=== PATIENT | female | born 1935 | race Caucasian/White ===

== ENCOUNTER 2019-01-10 17:41 | Inpatient (IN) | payer OTHER ==
[~2019-01-10] VITALS: Ht 167.6 cm; Wt 77.7 kg
[2019-01-10 17:44] VITALS: BP 172/82
[2019-01-10 18:17] LABS: HEMATOCRIT 44.4 % (37.0-47.0); HEMOGLOBIN 14.9 gm/dL (12.0-15.0); MCH 30.7 pg (26.0-34.0); MCHC 33.5 g/dL (28.0-37.0); MCV 91.6 fL (80.0-100.0); RBC 4.85 mil/uL (4.20-5.00); RDW 15.1 % (10.5-14.5); WBC 12.4 thou/uL (4.0-11.0)
[2019-01-10 18:19] LABS: URINE BILIRUBIN NEGATIVE (Negative); URINE BLOOD NEGATIVE (Negative); URINE CLARITY CLEAR; URINE COLOR YELLOW; URINE GLUCOSE-RANDOM* NEGATIVE (Negative); URINE KETONES NEGATIVE (Negative); URINE NITRITE-REFLEX NEGATIVE (Negative); URINE PROTEIN (DIPSTICK) NEGATIVE (Negative); URINE SPECIFIC GRAVITY <= 1.005 (1.005-1.035); URINE UROBILINOGEN 0.2 E.U./dl (0.2-1.0)
[2019-01-10 18:23] LABS: CALCIUM 9.9 mg/dL (8.5-10.1); POTASSIUM 3.7 mmol/L (3.5-5.1)
[2019-01-10 18:24] LABS: URINE LEUKOCYTES-REFLEX 1+ (Negative)
[2019-01-10 18:28] LABS: ALBUMIN 4.2 g/dL (3.4-5.0); DIRECT BILIRUBIN 0.2 mg/dL (<0.1-0.3); TOTAL BILIRUBIN 1.1 mg/dL (<0.1-1.0); TOTAL PROTEIN 7.8 g/dL (6.4-8.2)
[2019-01-10 18:28] LABS: AMP/METHAMP Negative (Negative); BARBITURATES Negative (Negative); BENZODIAZEPINES Negative (Negative); COCAINE Negative (Negative); METHADONE Negative (Negative); OPIATES Negative (Negative); PCP Negative (Negative)
[2019-01-10] MEDS ORDERED: CALCIUM + D SO1 EACH PO (18:28)
[2019-01-10] MEDS ORDERED: CELEXA10 MG PO (18:28)
[2019-01-10] MEDS ORDERED: ASPIR 8181 MG PO (18:28)
[2019-01-10] MEDS ORDERED: CRESTOR5 MG PO (18:29)
[2019-01-10] MEDS ORDERED: SYNTHROID125 MC1 PO (18:29)
[2019-01-10] MEDS ORDERED: VENTOLIN HFA 1818 GM INH (18:29)
[2019-01-10] MEDS ORDERED: TURMERIC500 M2 PO (18:29)
[2019-01-10] MEDS ORDERED: FAMOTIDINE 20 M20 MG PO (18:29)
[2019-01-10] MEDS ORDERED: ANTIVERT25 MG PO (18:29)
[2019-01-10] MEDS ORDERED: TOPAMAX 25 MG T25 M1 PO (18:29)
[2019-01-10 18:32] LABS: BACTERIA-REFLEX None Seen /HPF (None Seen); CASTS None Seen /LPF (None Seen); CRYSTALS None Seen /LPF (None Seen); SQUAMOUS 0-3 Few /LPF (0-3); URINE RBC 3-10 Few /HPF (0-2); WBC CLUMPS Few (None Seen)
[2019-01-10 19:41] VITALS: BP 152/78
[2019-01-10 21:00] VITALS: BP 158/75
[2019-01-11 12:19] LABS: FOLIC ACID 14.9 ng/mL (8.6-58.9); TSH 0.492 uIU/mL (0.358-3.740)
[2019-01-11 18:24] VITALS: BP 151/71
[2019-01-11 19:50] VITALS: BP 139/76
[2019-01-12 06:49] LABS: URINE BILIRUBIN NEGATIVE (Negative); URINE BLOOD NEGATIVE (Negative); URINE CLARITY CLEAR; URINE COLOR YELLOW; URINE GLUCOSE-RANDOM* NEGATIVE (Negative); URINE KETONES NEGATIVE (Negative); URINE LEUKOCYTES-REFLEX NEGATIVE (Negative); URINE NITRITE-REFLEX NEGATIVE (Negative); URINE PROTEIN (DIPSTICK) NEGATIVE (Negative); URINE UROBILINOGEN 0.2 E.U./dl (0.2-1.0)
[2019-01-12 13:07] LABS: GLYCOHEMOGLOBIN (HGB A1C) 6.3 % (4.8-5.6)
[2019-01-12 20:30] VITALS: BP 155/84
[2019-01-12 22:10] VITALS: BP 155/84
[2019-01-13 08:00] VITALS: BP 150/79
--- NOTE | 2019-01-13 15:56 | EKG ---
[address] [address] ELECTROCARDIOGRAM REPORT Name: PHILIP WOODARD Room #: 526A-A ADM IN M.R.#: [id number] ������������������ Admission: 01/10/19 ������������������ Attend Phys: Pipo Hutchins DO Discharge: ������������������ Date of : 39 Report #: [id number] ����������������������������������������������������������������� [id number] THIS REPORT FOR: //name// [facility] Test Date: 2019-01-13 Test Time: 11:11:46 Pat Name: PHILIP WOODARD Department: Room: 52 A Gender: F Vegetable Vendor: Don ANAND : 1935 Requested By: Pipo Hutchins Order Number: [id number] MD: Stefano Elliott Measurements Intervals [place] Rate: 104 P: 60 CA: 153 QRS: -23 QRSD: 87 T: 69 QT: 338 QTc: 445 Interpretive Statements Sinus tachycardia Borderline left axis deviation No previous ECG available for comparison Electronically Signed On 01-13-2019 15:56:48 CDT by Stefano Elliott [email or web address] ��������������������������������������������� <ELECTRONICALLY SIGNED> ���������������������������������������� By: Stefano Elliott MD ��������������������������������������������� 01/13/19 1556 1111 Karen Elliott MD /SUDHEER
[2019-01-13 21:15] VITALS: BP 133/66
[2019-01-13 21:19] VITALS: BP 135/66
[2019-01-14 00:46] VITALS: BP 135/66
[2019-01-14 11:00] VITALS: BP 140/76
[2019-01-14 20:00] VITALS: BP 147/84
[2019-01-15 08:05] VITALS: BP 140/76
[2019-01-15 19:42] VITALS: BP 143/87
--- NOTE | 2019-01-16 00:05 | H ---
[facility] [place] [place] [address] HISTORY AND PHYSICAL Name: PHILIP WOODARD Room #: 526A-A ADM IN M.R.#: [id number] Admission: 01/10/19 ������������������ Attend Phys: Pipo Hutchins DO Discharge: ������������������ Date of : 39 Report #: [id number] THIS REPORT FOR: //name// CC: Pipo Hutchins Nicole Post DATE OF SERVICE: 01/11/2019 ATTENDING PHYSICIAN: Pipo Hutchins DO BUILDING DRAFTING OFFICER: Arminda Valdez APRN REASON FOR ADMISSION: Roaming from facility at 5:00 a.m. found outside by bystander, eloped second time this afternoon. Geriatric Psychiatry admission was requested. SOURCE OF INFORMATION: Chart, chart review, ER records and Emergency Room records. HISTORY OF PRESENT ILLNESS: This is an 83-year-old female. The patient is reported to have a history of mild cognitive impairment. Resides at the [facility]. The patient has been "going from one place to another all morning." She became frustrated the night before admission when nursing facility refused to give her an inhaler for her COPD. She then decided to "leave and find some." She went out of the nursing facility, became short of breath. She called EMS at that time. Nursing facility RN refused to let the patient be taken with EMS. The patient reports she has been to 3 hospitals today. The patient states she is "sick of it." I attempted to first interview the patient this morning, she was focusedon her purse, belongings, velasco. She would not accept the fact that inventory could not be brought out for safety reasons. This resulted in the yelling and argument. I let her cool down. I re-approached her, completed the [facility] Mental Status Examination. She scored 15/30 with deficits in various areas. PAST MEDICAL HISTORY: GERD, COPD, Meniere's disease, and type 2 diabetes mellitus also is diet controlled. PSYCHIATRIC HISTORY: Anxiety, delusional disorder, major depressive disorder. HOME MEDICATIONS: Aspirin 81 mg chewable daily, calcium carbonate with vitamin D3 chewable 1 p.o. daily, citalopram 10 mg p.o. daily, rosuvastatin 5 mg p.o. daily, famotidine 20 mg p.o. at bedtime, levothyroxine 125 mcg p.o. daily, meclizine 25 mg p.o. b.i.d. as she does have vertigo, topiramate 25 mg p.o. b.i.d. for headaches, turmeric root extract 500 mg p.o. t.i.d. and Albuterol sulfate 2 puffs inhaled q. 6 p.r.n. shortness of breath. [facility] [address] [place] [address] HISTORY AND PHYSICAL Name: PHILIP WOODARD Room #: 526A-A ADM IN M.R.#: [id number] Admission: 01/10/19 ������������������ Attend Phys: Pipo Hutchins DO Discharge: ������������������ Date of : 39 Report #: [id number] ALLERGIES: No known allergies. SOCIAL HISTORY: Denies alcohol, smoking or drug use. REVIEW OF SYSTEMS: Ten-point review of systems from the ER. CONSTITUTIONAL: Denies fever, chills, malaise or unexplained weight change. EYES: Denies eye pain, visual changes or discharge. HEENT AND NECK: Denies hearing changes, ear drainage, ear infections, ear pain, neck pain or stiffness. RESPIRATORY: Denies cough, shortness of breath, hemoptysis, respiratory distress. CARDIOVASCULAR: Denies chest pain, chest pain with exertion or edema. GASTROINTESTINAL: Denies abdominal pain, myalgias. SKIN: Denies rash. NEUROLOGIC: Denies weakness, headache, loss of consciousness. Otherwise, denied on 10-point review of systems. VITAL SIGNS: Temperature 36.6, pulse 77, respirations 18, BP 151/71, O2 sat 100%. LABORATORY DATA: Done last night, white count 12.4, H and H 14.9 and 44.4, platelet count 263. Chemistry A1c is pending. TSH 0.492, folate 14.9, vitamin B12 246. Go ahead and give her an injection in the next 3 days of vitamin B12. The patient is unable to make healthcare living decisions. We will need to act her DPOA for healthcare and if she has one general financial DPOA. PHYSICAL EXAMINATION: The patient is ambulatory with a walker. MENTAL STATUS EXAMINATION: This is a well-developed, fairly nourished male, appearing stated age. Concentration intact. Attention limited. Speech is normal in rate, volume and tone. Thought process is linear and goal-directed. Thought content focused on bettering situation under which she is dealing . No psychomotor agitation. No psychomotor retardation. Mood and affect congruent, constricted. Denies hallucinations. Insight limited. Judgment limited. Fund of knowledge below average. FORMULATION: This is an 83-year-old female being brought to [facility] for Geriatric Psychiatry evaluation. DIAGNOSIS: Major neurocognitive disorder based on clinical history, SLUMS score of 15/30. The patient's brother is Jason Landry. [facility] [address] [place] [address] HISTORY AND PHYSICAL Name: PHILIP WOODARD Room #: 526A-A ADM IN .R.#: [id number] Admission: 01/10/19 ������������������ Attend Phys: Pipo Hutchins DO Discharge: ������������������ Date of : 39 Report #: [id number] RECOMMENDATIONS FOR TREATMENT: Continue to evaluate and stabilize. Start the patient on olanzapine 5 mg p.o. twice per day, Celexa has been stopped due to lack of efficacy. Continue topiramate 25 mg twice a day. Continue respiratory medications via nebulizer. STRENGTHS: Insured, has some family support. WEAKNESS: Advancing age, likely major neurocognitive disorder. ESTIMATED LENGTH OF STAY: Seven to fourteen days. ��������������������������������������������� <ELECTRONICALLY SIGNED> ���������������������������������������� By: Pipo Hutchins DO ��������������������������������������������� 01/16/19 0005 1844 1950 Ppio Hutchins DO /nt
[2019-01-16 07:25] VITALS: BP 126/74
[2019-01-16 19:39] VITALS: BP 143/78
[2019-01-17 19:44] VITALS: BP 142/73
[2019-01-18 10:58] VITALS: BP 145/74
[2019-01-18 20:36] VITALS: BP 172/89
[2019-01-19 09:25] VITALS: BP 138/78
[2019-01-19 19:51] VITALS: BP 146/83
[2019-01-20 08:57] VITALS: BP 150/77
[2019-01-20 19:27] VITALS: BP 131/63
[2019-01-21 08:00] VITALS: BP 137/75
[2019-01-21 09:37] VITALS: BP 131/63
[2019-01-21 19:35] VITALS: BP 158/79
[2019-01-22 07:45] VITALS: BP 132/62
[2019-01-22 10:26] VITALS: BP 132/62
[2019-01-22 20:38] VITALS: BP 148/85
[2019-01-22 22:29] VITALS: BP 148/85
[2019-01-22 22:33] VITALS: BP 148/85
[2019-01-22 22:44] VITALS: BP 148/85
[2019-01-23 07:50] VITALS: BP 134/77
[2019-01-23] MEDS ORDERED: EXELON1 EACH TRANSDERM (09:15)
[2019-01-23] MEDS ORDERED: IPRAT-ALBUT 0.5-3 ML INH (09:18)
[2019-01-23] MEDS ORDERED: PULMICORT0.5 MG/21 INH (09:19)
[2019-01-23] MEDS ORDERED: ZYPREXA 5 MG TAB5 M1 PO (09:19)
[2019-01-23] MEDS ORDERED: ANTIVERT25 MG PO (09:20)
[2019-01-23] MEDS ORDERED: MIRALAX17 GM PO (09:20)
[2019-01-23] MEDS ORDERED: SYNTHROID125 MC1 PO (09:21)
[2019-01-23] MEDS ORDERED: PEPCID20 MG PO (09:21)
--- NOTE | 2019-01-24 20:50 | D ---
[facility] [address] [place] [address] DISCHARGE SUMMARY Name: PHILIP WOODARD Room #: 526A-A [facility] IN M.R.#: [id number] Admission: 01/10/19 ������������������ Attend Phys: Pipo Hutchins DO Discharge: 01/23/19 ������������������ Date of : 39 Report #: [id number] THIS REPORT FOR: //name// CC: Pipo Hutchins Nicole Post DATE OF SERVICE: 01/23/2019 INPATIENT PSYCHIATRIC DISCHARGE SUMMARY ATTENDING PHYSICIAN: Pipo Hutchins DO. LOPPER AT THE TIME OF DISCHARGE: Jason Snyder M.D. 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 ADDITIONAL COMORBIDITIES: Chronic obstructive pulmonary disease, stable; hypothyroidism, stable and hyperlipidemia, stable. DISCHARGE PLAN: As follows: The patient will be discharged to [facility], [address] [place] [address]. Psychiatric medical care to be completed at that facility. DISCHARGE MEDICATIONS: As follows: Rivastigmine patch 4.6 mg daily, need to be re-applied daily, considering moving the next strength patch up in approximately one month; ipratropium and albuterol sulfate 3 mL by respiratory therapist q. 6 hours while awake; olanzapine 7.5 mg p.o. b.i.d. for mood stabilization; budesonide 0.5 mg inhaled by nebulizer twice a day; polyethylene glycol 17 grams daily for bowel motility; meclizine 12.5 mg p.o. b.i.d. for vertigo, chronic; famotidine 20 mg p.o. daily for GERD; levothyroxine sodium 125 mcg p.o. daily for hypothyroidism; continue aspirin 81 mg p.o. daily for cardioprotection; topiramate 25 mg p.o. b.i.d. for headaches and calcium carbonate with vitamin D3 one tab p.o. daily. LABORATORY DATA: Laboratories this admission, on 01/10/2019, white count 12.4, H and H 14.9 and 44.4 and platelet count 263,000. Chemistry is grossly normal. Serum alcohol less than 10. UDS was negative. Urinalysis x 2, on 01/10/2019 and 01/12/2019, there were some leukocytes and red blood cells. There was a culture for 25-50 thousand CFUs of E. coli. She was treated with 100 mg b.i.d. of nitrofurantoin for 7 days. REASON FOR ADMISSION: As follows, brought by EMS from assisted living in [facility]. She had been going from one place to another all morning. She became frustrated last night as she was not given inhaler for her COPD, decided to leave and find someone. She walked out of the nursing facility and [facility] [address] [place] [address] DISCHARGE SUMMARY Name: PHILIP WOODARD Room #: 526A-A [facility] IN ..#: [id number] Admission: 01/10/19 ������������������ Attend Phys: Pipo Hutchins, Discharge: 01/23/19 ������������������ Date of : 39 Report #: [id number] became short of breath. She called EMS. Nursing facility refused for the patient to be taken. Then, eloped the second time. HOSPITAL COURSE: The patient was admitted to the Geriatric Psychiatry Unit. We elected to titrate the patient on olanzapine as she had some delusional thinking. A family meeting was held with her brother, Jason Daniel. Diagnosis and prognosis were discussed, risk of antipsychotics in the elderly and the influential population was discussed and concerning for ongoing treatment and the patient's need to be supported was related to her brother. MUSCULOSKELETAL EXAMINATION: Normal gait and station. MENTAL STATUS EXAMINATION: This is a well-developed, fairly nourished female, wearing glasses. Attention intact. Concentration intact. Speech is normal in rate. Thought process linear and goal directed. Thought content focused on discharge. No psychomotor agitation. No psychomotor retardation. Denied auditory, visual or tactile hallucinations. Denied suicidal intent or plan. Denied hopelessness or helplessness. Denied homicidal intent or plan. Memory not formally tested and noted to be impaired. Of note, her SLUMS score was impinged. Insight limited. Judgment limited. Fund of knowledge greater than average. PROGNOSIS: Prognosis for the patient is guarded due to her neurodegenerative disorder. ��������������������������������������������� <ELECTRONICALLY SIGNED> ���������������������������������������� By: Pipo Hutchins DO ��������������������������������������������� 01/24/192049 02 Pipo Hutchins DO /nt
== END 2019-01-23 13:00 | DRG 57 ==
LOC: ER 17:41 → SBH 19:17 → EROBS 19:17 → SBH 19:17
PROVIDERS: Emergency Medicine; Internal Medicine; ADMIT Psychiatry & Neurology Psychiatry
DX: G30.9 Alzheimer's disease, unspecified (principal); F02.81 Dementia in other diseases classified elsewhere, unspecified severity, with behavioral disturbance; F41.9 Anxiety disorder, unspecified; E11.9 Type 2 diabetes mellitus without complications; F32.9 Major depressive disorder, single episode, unspecified; J44.9 Chronic obstructive pulmonary disease, unspecified; E03.9 Hypothyroidism, unspecified; D72.829 Elevated white blood cell count, unspecified; E78.5 Hyperlipidemia, unspecified; K21.9 Gastro-esophageal reflux disease without esophagitis; Z79.82 Long term (current) use of aspirin; Z79.899 Other long term (current) drug therapy
CPT/HCPCS: 10880